=== PATIENT | female | born 1955 | race Caucasian/White ===

== ENCOUNTER 2024-04-22 16:16 | Emergency (ER) | payer OTHER, MEDICARE, SELFPAY ==
[2024-04-22 16:21] VITALS: BP 187/89; PULSE 93; RESP 16; TEMP 36.4; O2SAT 97; BMI 30.9
--- NOTE | 2024-04-22 18:08 | ED.WOUNDLAC ---
HPI - Wound/Laceration General Chief Complaint: Wound/Laceration Stated Complaint: stabbed stomach with knife Time Seen by Provider: 04/22/24 17:59 History of Present Illness HPI narrative: 68-year-old female was working in her kitchen, I just cut mauro with a paring like knife, bumped into it, sustained laceration to her anterior abdomen accidentally, the knife penetrated perhaps 1.5cm by residue blood on knife tip, no dizziness or weakness. Local bleeding controlled with direct pressure. Last tetanus shot she believes less than 5 years ago. No other injuries. She denies use blood thinner medications. Related Data Home Medications Medication Instructions Recorded Confirmed [CALM DRAGON] PO QDAY ##0 04/26/17 cholecalciferol (vitamin D3) 50 PO QDAY ##0 04/26/17 mcg (2,000 unit) capsule (Vitamin D3) cyclosporine 100 mg capsule 100 mg PO BID ##0 04/26/17 duloxetine 60 mg capsule,delayed 60 mg PO QDAY ##0 04/26/17 release etodolac 400 mg tablet 400 mg PO BIDCC ##0 04/26/17 glucosamine sulfate 500 mg capsule PO QDAY ##0 04/26/17 (Genicin) multivitamin (Multiple Vitamins 1 tab PO QDAY ##0 04/26/17 tablet) omega 8-ohy-cnt-fish oil 1,000 mg 1,000 mg PO QDAY ##0 04/26/17 (120 mg-180 mg) capsule (Fish Oil) vitamin B complex (B 1 tab PO QDAY ##0 04/26/17 Complex-Vitamin B12 tablet) Previous Rx's Medication Instructions Recorded metoprolol tartrate 25 mg tablet 12.5 mg (1/2 x 25 mg) PO BID #20 04/26/17 tabs Allergies Allergy/AdvReac Type Severity Reaction Status Date / Time amoxicillin [AMOXICILLIN] Allergy Unknown Unverified 12/21/17 12:32 methotrexate [METHOTREXATE] Allergy Unknown Unverified 12/21/17 12:32 Sulfa (Sulfonamide Allergy Unknown Unverified 12/21/17 12:32 Antibiotics) [SULFA (SULFONAMIDE ANTIBIOTICS)] tetracycline [TETRACYCLINE] Allergy Unknown Unverified 12/21/17 12:32 Review of Systems Review of Systems Narrative: See HPI Exam Narrative Exam Narrative: GENERAL: Well-developed patient, in mild distress. HEAD: Atraumatic. Normocephalic. EYES: Pupils equal round and reactive. Extraocular motions intact. No scleral icterus. No injection or drainage. ENT: Nose without bleeding, purulent drainage. Throat without erythema, tonsillar hypertrophy or exudate. Airway patent. NECK: Trachea midline. Non tender CARDIOVASCULAR: Regular rate and rhythm without murmurs, gallops, or rubs. RESPIRATORY: Clear to auscultation. Breath sounds equal bilaterally. No wheezes, rales, or rhonchi. GASTROINTESTINAL: Anterior abdomen with right upper periumbilical small laceration with opening 7-8mm somewhat oblique, blind sac, shallow, does not appear to be very deep. Nonpulsatile slight ooze bleeding right red blood easily stopped with direct digital pressure. No omentum or other abdominal perineal structures visualized. No significant other quadrant abdominal tenderness or distention. EXTREMITIES: No edema or joint tenderness. BACK: Nontender without deformity or crepitance. No flank tenderness. NEURO: AOx3. Nonfocal neuro exam SKIN: No rash or erythema of visible areas Initial Vital Signs Initial Vital Signs: Vital Signs Temperature 97.6 F 04/22/24 16:21 Pulse Rate 93 H 04/22/24 16:21 Respiratory Rate 16 04/22/24 16:21 Blood Pressure 187/89 H 04/22/24 16:21 Pulse Oximetry 97 04/22/24 16:21 Oxygen Delivery Method Room Air 04/22/24 16:21 Procedures Laceration Repair Laceration 1: Time of procedure: 18:29 Site: other (Anterior abdomen, shallow laceration, knife blade has dried blood proximally 1-1.5cm depth only) Side (If applicable): right Size (cm): 1 Description: linear Depth: simple, single layer Local Anesthetic: lidocaine 1% and with epi Amount of anesthesia used (mL): 3 Pre-repair: wound explored and irrigated extensively Skin layer closed with: nylon Skin layer suture size: 4-0 Number of sutures: 2 Course Vital Signs Vital signs: Vital Signs - 8 hr 04/22/24 16:21 04/22/24 18:48 Temperature 97.6 F 98.3 F Pulse Rate 93 H 83 Respiratory Rate 16 16 Blood Pressure 187/89 H 186/99 H Pulse Oximetry 97 98 Oxygen Delivery Method Room Air Room Air MDM - Wound/Laceration MDM Narrative Medical decision making narrative: 68-year-old female with superficial anterior abdominal laceration accidental, we will moving accidentally toward a protruding paring knife, dried blood on knife tip possible 1.5 cm penetration only. On exam wound somewhat oblique, superficial, no visible omentum, fairly shallow. See separate note for primary closure, suture x2 interrupted nylon sutures, good hemostasis and cosmesis. Wound check advised next couple of days, suture removal likely 7 days. We discussed advanced abdominal imaging, likely did not penetrate very far, hold for now. Seems low likelihood peritoneal injury, however we did discuss abdominal pain penetrating perineal injury warnings. Home, improved. Tylenol/Motrin [id number] as needed for pain control. Wound infection warnings discussed. Peritoneal internal injury warnings discussed. Discharge Plan Departure Patient Disposition: Home Clinical Impression: Laceration of abdominal wall, anterior Activity Restrictions/Additional Instructions: Accidental knife blade injury wound to anterior abdominal wall, somewhat oblique, shallow, no visualized peritoneum or intraperitoneal abdominal contents, some local bleeding controlled easily with direct pressure. Suspected superficial laceration only. No abdominal advanced imaging at this time. Wound closure with 2 simple stitches with good approximation and hemostasis. Wound check in symptom review advised in 2 days with your regular doctor. Likely suture removal in about 7 days anticipated. Recheck earlier if any signs symptoms of increasing abdominal pain, as advanced imaging could be considered if there is any concerns. Return earlier if any change worsening symptoms or any concerns prior. Last tetanus shot reported less than 5 years ago, you will review tetanus shot records with your regular doctor in 2 days for wound check. Prescriptions: No Action cyclosporine 100 MG capsule 100 mg PO BID Qty: 0 multivitamin [Multiple Vitamins] 1 EACH tablet 1 tab PO QDAY Qty: 0 etodolac 400 MG tablet 400 mg PO BIDCC Qty: 0 duloxetine 60 MG capsule,delayed release(DR/EC) 60 mg PO QDAY Qty: 0 vitamin B complex [B Complex-Vitamin B12] 1 EACH tablet 1 tab PO QDAY Qty: 0 cholecalciferol (vitamin D3) [Vitamin D3] 2,000 unit capsule PO QDAY Qty: 0 glucosamine sulfate [Genicin] 500 mg capsule PO QDAY Qty: 0 omega 9-hhy-jce-fish oil [Fish Oil] 1,000 MG capsule 1,000 mg PO QDAY Qty: 0 [CALM DRAGON] PO QDAY Qty: 0 metoprolol tartrate 25 MG tablet 12.5 mg PO BID Qty: 20 0RF Referrals: Daryl Porras MD [Primary Care Provider] - Stand Alone Forms: Patient Portal/API
--- NOTE | 2024-04-22 18:45 | PC.NURSE ---
Pt states she was making food when she accidentally knicked her stomach with a knife; laceration not significant in depth. Pt denies any abdominal symptoms. Pt wound stitched by w/ 2 stitches. Bandaid applied. Pt instructed on use of topical antibiotic ---Pt given extra bandaide.
[2024-04-22 18:48] VITALS: BP 186/99; PULSE 83; RESP 16; TEMP 36.8; O2SAT 98
== END 2024-04-22 18:49 | disposition home or self-care (01) ==
PROVIDERS: Emergency Provider Emergency Medicine; PCP Internal Medicine
DX: S31.119A Laceration without foreign body of abdominal wall, unspecified quadrant without penetration into peritoneal cavity, initial encounter (principal); W26.0XXA Contact with knife, initial encounter
CPT/HCPCS: 12001; 99281; 99283